=== PATIENT | male | born 1955 | race Caucasian/White ===

== ENCOUNTER 2018-09-24 11:44 | Outpatient (CLI) | payer MEDICAID ==
[~2018-09-24 11:44] MED LIST: DOCU100C40 PO; DONE-46 PO; DOXE25CA3 PO; FAMO20TA10 PO; LACT1CAP65 PO
== END 2018-09-24 23:59 | disposition home or self-care (01) ==
LOC: 64 CT 11:44
PROVIDERS: ATTEND Internal Medicine
DX: K57.30 Diverticulosis of large intestine without perforation or abscess without bleeding (principal); K44.9 Diaphragmatic hernia without obstruction or gangrene; K40.90 Unilateral inguinal hernia, without obstruction or gangrene, not specified as recurrent; J43.9 Emphysema, unspecified; K61.1 Rectal abscess
CPT/HCPCS: 74176

== ENCOUNTER 2023-08-20 13:44 | Inpatient (IN) | payer MEDICARE, MEDICAID ==
[~2023-08-20] VITALS: Ht 180.3 cm; Wt 45.7 kg
[2023-08-20 21:14] LABS: BASOPHILS % (AUTO) 0.3 % (0-1); EOSINOPHILS # (AUTO) 0.1 X10'3 (0-0.9); EOSINOPHILS % (AUTO) 0.4 % (0-6); HEMATOCRIT 34.5 % (42.0-52.0); HEMOGLOBIN 11.1 g/dl (14.0-17.9); LYMPHOCYTES # (AUTO) 1.1 X10'3 (1.1-4.8); LYMPHOCYTES % (AUTO) 5.8 % (21-51); MEAN CORPUSCULAR HEMOGLOBIN 30.6 PG (27.0-31.0); MEAN CORPUSCULAR HGB CONC 32.3 g/dL (33.0-36.5); MEAN CORPUSCULAR VOLUME 94.7 FL (78-98); MEAN PLATELET VOLUME 6.5 FL (7.4-10.4); MONOCYTES # (AUTO) 1.2 X10'3 (0-0.9); MONOCYTES % (AUTO) 6.5 % (2-12); NEUTROPHILS # (AUTO) 16.2 X10'3 (1.8-7.7); PLATELET COUNT 331 X10'3 (140-440); RED BLOOD COUNT 3.64 X10'6 (4.70-6.10); RED CELL DISTRIBUTION WIDTH 16.6 % (11.5-14.5); WHITE BLOOD COUNT 18.6 X10'3 (4.5-11.0)
[2023-08-20 21:24] LABS: APTT 25 SECONDS (22-32); PROTHROMBIN TIME 11.2 SECONDS (9.0-12.0)
[2023-08-20 21:26] LABS: ALANINE AMINOTRANSFERASE 19 U/L (12-78); ALBUMIN 3.1 G/DL (3.4-5.0); ALBUMIN/GLOBULIN RATIO 0.7 (1.1-1.5); ALKALINE PHOSPHATASE 57 IU/L (46-116); ANION GAP 10 (8-16); ASPARTATE AMINO TRANSFERASE 19 U/L (10-37); BILIRUBIN,TOTAL 0.5 MG/DL (0.1-1.0); BLOOD UREA NITROGEN 24 MG/DL (7-18); BUN/CREATININE RATIO 24.5 (10.0-20.0); C-REACTIVE PROTEIN 2.33 MG/DL (0.0-0.5); CALCIUM 8.5 MG/DL (8.5-10.1); CHLORIDE 100 MMOL/L (99-107); CREATININE 0.98 MG/DL (0.60-1.10); GLUCOSE 114 MG/DL (70-104); POTASSIUM 3.5 MMOL/L (3.5-5.1); SODIUM 138 MMOL/L (135-145); TOTAL CARBON DIOXIDE 28.5 MMOL/L (24-32); TOTAL PROTEIN 7.3 G/DL (6.4-8.2); eCRCL 46 ML/MIN; eGFR 76 ML/MIN
[2023-08-20] MEDS: normal saline 1000ml 1,000 ML IV ONE (22:57)
[2023-08-21] MEDS: CefTRIAXone/D5W-Rocephin 1gm 50 ML IV ONE (00:03)
[2023-08-21] MEDS ORDERED: potassium Cl 20 mEq SR tablet PO PRN (00:50)
[2023-08-21] MEDS ORDERED: potassium Cl 40MEQ/1/2NS 520ml 520 ML IV PRN (00:50)
[2023-08-21] MEDS ORDERED: magnesium 4gm in 100ml NS 100 ML IV PRN (00:50)
[2023-08-21] MEDS ORDERED: magnesium hydroxide 30ml (MOM) UD suspension PO PRN (00:50)
[2023-08-21] MEDS ORDERED: magnesium 2GM in 50ml NS 50 ML IV PRN (00:50)
[2023-08-21] MEDS: vancomycin/NS 1 GM ADD-VANTAGE 250 ML IV ONE (01:06)
[2023-08-21] MEDS: metroNIDAZOLE 500mg tablet PO SCH (08:00)
[2023-08-21] MEDS: docusate sod 100mg capsule PO SCH (08:00)
[2023-08-21] MEDS: K and/or MAG REPLACEMENT MC SCH (08:00)
[2023-08-21 08:10] VITALS: BP 105/60; PULSE 83; RESP 14; TEMP 98.6; O2SAT 97
[2023-08-21 08:22] LABS: MAGNESIUM 1.5 MG/DL (1.5-2.4)
[2023-08-21] MEDS: heparin, porcine 5000 units/ml vial SQ SCH (08:40)
[2023-08-21] MEDS: metroNIDAZOLE-Flagyl 500mg/NS 100 ML IV SCH (09:38)
[2023-08-21 10:00] VITALS: BP 109/61; PULSE 68; RESP 14; RESP 16; TEMP 98.1; O2SAT 97; O2SAT 98
[2023-08-21 11:11] LABS: BASOPHILS # (AUTO) 0.1 X10'3 (0-0.2); BASOPHILS % (AUTO) 0.4 % (0-1); EOSINOPHILS # (AUTO) 0.1 X10'3 (0-0.9); EOSINOPHILS % (AUTO) 0.6 % (0-6); HEMOGLOBIN 10.3 g/dl (14.0-17.9); LYMPHOCYTES # (AUTO) 0.8 X10'3 (1.1-4.8); LYMPHOCYTES % (AUTO) 4.8 % (21-51); MEAN CORPUSCULAR HEMOGLOBIN 30.4 PG (27.0-31.0); MEAN CORPUSCULAR HGB CONC 32.3 g/dL (33.0-36.5); MEAN CORPUSCULAR VOLUME 94.1 FL (78-98); MONOCYTES # (AUTO) 1.1 X10'3 (0-0.9); MONOCYTES % (AUTO) 6.8 % (2-12); NEUTROPHILS # (AUTO) 14.1 X10'3 (1.8-7.7); NEUTROPHILS % (AUTO) 87.4 % (42-75); PLATELET COUNT 253 X10'3 (140-440); RED CELL DISTRIBUTION WIDTH 16.6 % (11.5-14.5); WHITE BLOOD COUNT 16.1 X10'3 (4.5-11.0)
[2023-08-21 11:16] LABS: ALANINE AMINOTRANSFERASE 16 U/L (12-78); ALBUMIN 2.5 G/DL (3.4-5.0); ALBUMIN/GLOBULIN RATIO 0.7 (1.1-1.5); ALKALINE PHOSPHATASE 47 IU/L (46-116); ANION GAP 7 (8-16); ASPARTATE AMINO TRANSFERASE 16 U/L (10-37); BILIRUBIN,TOTAL 0.3 MG/DL (0.1-1.0); BLOOD UREA NITROGEN 17 MG/DL (7-18); BUN/CREATININE RATIO 20.2 (10.0-20.0); CALCIUM 7.6 MG/DL (8.5-10.1); CHLORIDE 104 MMOL/L (99-107); CREATININE 0.84 MG/DL (0.60-1.10); GLUCOSE 97 MG/DL (70-104); POTASSIUM 3.2 MMOL/L (3.5-5.1); SODIUM 135 MMOL/L (135-145); TOTAL CARBON DIOXIDE 23.7 MMOL/L (24-32); TOTAL PROTEIN 6.1 G/DL (6.4-8.2); eCRCL 54 ML/MIN; eGFR > 90 ML/MIN
[2023-08-21] MEDS: potassium Cl 20 mEq SR tablet PO PRN (12:44)
[2023-08-21] MEDS: ondansetron/PF 4mg/2ml inj IV PRN (12:44)
[2023-08-21 14:18] LABS: % IRON SATURATION 9 % (11-46); IRON 18 UG/DL (53-167); TOTAL IRON BINDING CAPACITY 204 UG/DL (259-388)
[2023-08-21] MEDS: heparin 10,000 units/1 ML INJ IV ONE (17:47)
[2023-08-21] MEDS: heparin 25,000 UNIT/250ml bag 250 ML IV PRN (17:54)
[2023-08-21 17:57] LABS: CHOL/HDL RATIO 2.3 (0.00-4.99); CHOLESTEROL 108 MG/DL (0-200); HDL CHOLESTEROL 46 MG/DL (35-60); LDL CHOLESTEROL 49 MG/DL (50-100); TRIGLYCERIDES 33 MG/DL (20-135)
[2023-08-21 18:00] VITALS: PULSE 79; RESP 16; TEMP 97.6; O2SAT 96
[2023-08-21] MEDS: MESSAGE TO NURSING IV ONE (18:28)
[2023-08-21 18:38] LABS: INR 1.1 INR; PROTHROMBIN TIME 12.1 SECONDS (9.0-12.0)
[2023-08-21] MEDS: atorvastatin 20mg tablet PO SCH (18:40)
[2023-08-21 18:54] LABS: APTT 89 SECONDS (22-32)
[2023-08-21 19:05] LABS: BASOPHILS # (AUTO) 0.1 X10'3 (0-0.2); BASOPHILS % (AUTO) 0.7 % (0-1); EOSINOPHILS # (AUTO) 0.2 X10'3 (0-0.9); HEMATOCRIT 33.2 % (42.0-52.0); HEMOGLOBIN 11.1 g/dl (14.0-17.9); LYMPHOCYTES % (AUTO) 6.5 % (21-51); MEAN CORPUSCULAR HEMOGLOBIN 31.3 PG (27.0-31.0); MEAN CORPUSCULAR HGB CONC 33.4 g/dL (33.0-36.5); MEAN CORPUSCULAR VOLUME 93.8 FL (78-98); MEAN PLATELET VOLUME 6.6 FL (7.4-10.4); MONOCYTES % (AUTO) 6.5 % (2-12); NEUTROPHILS # (AUTO) 13.4 X10'3 (1.8-7.7); NEUTROPHILS % (AUTO) 85.3 % (42-75); PLATELET COUNT 266 X10'3 (140-440); RED BLOOD COUNT 3.53 X10'6 (4.70-6.10); RED CELL DISTRIBUTION WIDTH 16.5 % (11.5-14.5); WHITE BLOOD COUNT 15.7 X10'3 (4.5-11.0)
[2023-08-21 20:00] VITALS: RESP 16; O2SAT 96
[2023-08-21] MEDS: CefTRIAXone 2gm/D5W 50ml BAG 50 ML IV SCH (21:48)
[2023-08-21] MEDS ORDERED: CefTRIAXone/D5W-Rocephin 1gm 50 ML IV SCH (22:00)
[2023-08-21 23:00] VITALS: BP 100/61; PULSE 55; RESP 16; TEMP 99.1; O2SAT 99
[2023-08-22] MEDS: vancomycin/NS 1 GM ADD-VANTAGE 250 ML IV SCH (00:06)
[2023-08-22] MEDS: heparin 10,000 units/1 ML INJ IV PRN (01:09)
[2023-08-22] MEDS: MESSAGE TO NURSING IV ONE ×5 (01:18→21:48)
[2023-08-22 06:30] VITALS: BP 107/51; PULSE 96; RESP 16; TEMP 97.9; O2SAT 98
[2023-08-22] MEDS: MULTIVIT-MIN/FERROUS GLUCONATE 9 MG/15 ML LIQUID PO SCH (07:50)
[2023-08-22 07:58] LABS: BASOPHILS # (AUTO) 0.1 X10'3 (0-0.2); BASOPHILS % (AUTO) 0.7 % (0-1); EOSINOPHILS # (AUTO) 0.2 X10'3 (0-0.9); EOSINOPHILS % (AUTO) 1.6 % (0-6); HEMATOCRIT 29.8 % (42.0-52.0); HEMOGLOBIN 9.8 g/dl (14.0-17.9); LYMPHOCYTES # (AUTO) 0.8 X10'3 (1.1-4.8); LYMPHOCYTES % (AUTO) 7.2 % (21-51); MEAN CORPUSCULAR HEMOGLOBIN 31.1 PG (27.0-31.0); MEAN CORPUSCULAR VOLUME 94.4 FL (78-98); MEAN PLATELET VOLUME 6.6 FL (7.4-10.4); MONOCYTES # (AUTO) 0.9 X10'3 (0-0.9); MONOCYTES % (AUTO) 7.9 % (2-12); NEUTROPHILS # (AUTO) 9.5 X10'3 (1.8-7.7); NEUTROPHILS % (AUTO) 82.6 % (42-75); PLATELET COUNT 258 X10'3 (140-440); RED BLOOD COUNT 3.16 X10'6 (4.70-6.10); RED CELL DISTRIBUTION WIDTH 16.3 % (11.5-14.5); WHITE BLOOD COUNT 11.5 X10'3 (4.5-11.0)
[2023-08-22 08:00] VITALS: RESP 20; O2SAT 99
[2023-08-22 08:29] LABS: ALANINE AMINOTRANSFERASE 18 U/L (12-78); ALBUMIN 2.2 G/DL (3.4-5.0); ALBUMIN/GLOBULIN RATIO 0.6 (1.1-1.5); ALKALINE PHOSPHATASE 40 IU/L (46-116); ANION GAP 7 (8-16); ASPARTATE AMINO TRANSFERASE 11 U/L (10-37); BILIRUBIN,TOTAL 0.4 MG/DL (0.1-1.0); BLOOD UREA NITROGEN 8 MG/DL (7-18); BUN/CREATININE RATIO 11.8 (10.0-20.0); CALCIUM 7.4 MG/DL (8.5-10.1); CHLORIDE 106 MMOL/L (99-107); CREATININE 0.68 MG/DL (0.60-1.10); GLUCOSE 89 MG/DL (70-104); MAGNESIUM 1.4 MG/DL (1.5-2.4); POTASSIUM 3.5 MMOL/L (3.5-5.1); SODIUM 139 MMOL/L (135-145); TOTAL CARBON DIOXIDE 25.9 MMOL/L (24-32); TOTAL PROTEIN 5.8 G/DL (6.4-8.2); eCRCL 67 ML/MIN; eGFR > 90 ML/MIN
[2023-08-22 10:30] VITALS: BP 100/50; PULSE 71; RESP 20; TEMP 97.6; O2SAT 99
[2023-08-22] MEDS ORDERED: iohexol 350MG/ML 100ml bottle IV ONE (11:05)
[2023-08-22] MEDS ORDERED: iohexol 350 MG/ML 50ML vial IV ONE (11:05)
[2023-08-22] MEDS: normal saline 1000ml 1,000 ML IV SCH (12:20)
[2023-08-22] MEDS: magnesium Cl slow-release 64mg tablet PO PRN (14:24)
[2023-08-22] MEDS: acetaminophen 325mg tablet PO PRN (14:25)
[2023-08-22] MEDS ORDERED: aminophylline 250mg/10ml inj. IV PRN (15:00)
[2023-08-22] MEDS ORDERED: nitroGLYCERIN 0.4mg SUBLingual tab SL PRN (15:00)
[2023-08-22] MEDS ORDERED: metoprolol tartrate 1mg/ml inj IV PRN (15:00)
[2023-08-22] MEDS ORDERED: MEGE400O7 PO (16:32)
[2023-08-22] MEDS ORDERED: MULT-1085 PO (16:32)
[2023-08-22] MEDS ORDERED: FLUT1BLS4 INH (16:32)
[2023-08-22] MEDS: pantoprazole 40 MG vial IV ONE (16:48)
[2023-08-22] MEDS: pneumococcal 23-VAL P-sac vacc 25 mcg/0.5ml vial IMVAC ONE (16:50)
[2023-08-22] MEDS: lactose-reduced food (Ensure Enlive) - 237ml bottle PO SCH (18:00)
[2023-08-22 22:28] VITALS: BP 111/54; PULSE 79; RESP 17; TEMP 98.1; O2SAT 97
[2023-08-23] VITALS (12 sets, daily range): BP systolic 103–150; BP diastolic 52–74; PULSE 66–114; RESP 14–18; TEMP 98–99.2; O2SAT 96–100
[2023-08-23 03:44] LABS: BASOPHILS # (AUTO) 0.1 X10'3 (0-0.2); BASOPHILS % (AUTO) 0.8 % (0-1); EOSINOPHILS # (AUTO) 0.2 X10'3 (0-0.9); EOSINOPHILS % (AUTO) 1.4 % (0-6); HEMATOCRIT 29.7 % (42.0-52.0); HEMOGLOBIN 9.8 g/dl (14.0-17.9); LYMPHOCYTES # (AUTO) 0.9 X10'3 (1.1-4.8); LYMPHOCYTES % (AUTO) 8.5 % (21-51); MEAN CORPUSCULAR HEMOGLOBIN 30.6 PG (27.0-31.0); MEAN CORPUSCULAR HGB CONC 32.9 g/dL (33.0-36.5); MEAN CORPUSCULAR VOLUME 93.1 FL (78-98); MEAN PLATELET VOLUME 6.4 FL (7.4-10.4); MONOCYTES # (AUTO) 0.8 X10'3 (0-0.9); MONOCYTES % (AUTO) 7.3 % (2-12); NEUTROPHILS # (AUTO) 9.1 X10'3 (1.8-7.7); PLATELET COUNT 252 X10'3 (140-440); RED BLOOD COUNT 3.19 X10'6 (4.70-6.10); RED CELL DISTRIBUTION WIDTH 16.7 % (11.5-14.5); WHITE BLOOD COUNT 11.2 X10'3 (4.5-11.0)
[2023-08-23 03:55] LABS: ALANINE AMINOTRANSFERASE 18 U/L (12-78); ALBUMIN 2.2 G/DL (3.4-5.0); ALBUMIN/GLOBULIN RATIO 0.6 (1.1-1.5); ALKALINE PHOSPHATASE 65 IU/L (46-116); ANION GAP 6 (8-16); ASPARTATE AMINO TRANSFERASE 15 U/L (10-37); BILIRUBIN,TOTAL 0.3 MG/DL (0.1-1.0); BLOOD UREA NITROGEN 11 MG/DL (7-18); BUN/CREATININE RATIO 16.9 (10.0-20.0); CALCIUM 7.5 MG/DL (8.5-10.1); CHLORIDE 107 MMOL/L (99-107); CREATININE 0.65 MG/DL (0.60-1.10); GLUCOSE 83 MG/DL (70-104); MAGNESIUM 1.6 MG/DL (1.5-2.4); POTASSIUM 3.5 MMOL/L (3.5-5.1); SODIUM 138 MMOL/L (135-145); TOTAL CARBON DIOXIDE 24.8 MMOL/L (24-32); TOTAL PROTEIN 5.7 G/DL (6.4-8.2); eCRCL 70 ML/MIN; eGFR > 90 ML/MIN
[2023-08-23] MEDS: MESSAGE TO NURSING IV ONE ×3 (04:04→17:50)
[2023-08-23] MEDS: regadenoson 0.4mg/5ml syringe IV PRN (11:47)
[2023-08-23] MEDS: morphine 2 MG/ML inj. syringe IV PRN (15:57)
[2023-08-23] MEDS: doxepin 25mg capsule PO SCH (20:42)
[2023-08-24] MEDS: VANCOMYCIN LEVEL IV ONE (00:56)
[2023-08-24] MEDS: MESSAGE TO NURSING IV ONE ×4 (01:08→23:05)
[2023-08-24] MEDS: donepezil 5mg tablet PO SCH (07:11)
[2023-08-24 07:36] LABS: BASOPHILS # (AUTO) 0.1 X10'3 (0-0.2); BASOPHILS % (AUTO) 0.8 % (0-1); EOSINOPHILS # (AUTO) 0.1 X10'3 (0-0.9); EOSINOPHILS % (AUTO) 0.7 % (0-6); HEMATOCRIT 31.7 % (42.0-52.0); HEMOGLOBIN 10.5 g/dl (14.0-17.9); LYMPHOCYTES # (AUTO) 0.7 X10'3 (1.1-4.8); LYMPHOCYTES % (AUTO) 6.1 % (21-51); MEAN CORPUSCULAR HEMOGLOBIN 30.7 PG (27.0-31.0); MEAN CORPUSCULAR HGB CONC 33.1 g/dL (33.0-36.5); MEAN CORPUSCULAR VOLUME 92.9 FL (78-98); MEAN PLATELET VOLUME 6.4 FL (7.4-10.4); MONOCYTES # (AUTO) 0.9 X10'3 (0-0.9); MONOCYTES % (AUTO) 7.3 % (2-12); NEUTROPHILS # (AUTO) 10.1 X10'3 (1.8-7.7); NEUTROPHILS % (AUTO) 85.1 % (42-75); PLATELET COUNT 263 X10'3 (140-440); RED BLOOD COUNT 3.41 X10'6 (4.70-6.10); RED CELL DISTRIBUTION WIDTH 16.2 % (11.5-14.5); WHITE BLOOD COUNT 11.9 X10'3 (4.5-11.0)
[2023-08-24 07:55] LABS: ALANINE AMINOTRANSFERASE 20 U/L (12-78); ALBUMIN 2.2 G/DL (3.4-5.0); ALBUMIN/GLOBULIN RATIO 0.6 (1.1-1.5); ALKALINE PHOSPHATASE 41 IU/L (46-116); ANION GAP 6 (8-16); ASPARTATE AMINO TRANSFERASE 18 U/L (10-37); BILIRUBIN,TOTAL 0.4 MG/DL (0.1-1.0); BLOOD UREA NITROGEN 6 MG/DL (7-18); BUN/CREATININE RATIO 8.8 (10.0-20.0); CALCIUM 7.5 MG/DL (8.5-10.1); CHLORIDE 105 MMOL/L (99-107); CREATININE 0.68 MG/DL (0.60-1.10); GLUCOSE 88 MG/DL (70-104); MAGNESIUM 1.2 MG/DL (1.5-2.4); SODIUM 138 MMOL/L (135-145); TOTAL PROTEIN 5.8 G/DL (6.4-8.2); eCRCL 67 ML/MIN; eGFR > 90 ML/MIN
[2023-08-24 07:56] LABS: POTASSIUM 2.8 MMOL/L (3.5-5.1)
[2023-08-24 08:00] VITALS: RESP 18; O2SAT 97
[2023-08-24 08:09] LABS: FERRITIN 172 NG/ML (26-388)
[2023-08-24 08:30] LABS: % IRON SATURATION 13 % (11-46); IRON 21 UG/DL (53-167); TOTAL IRON BINDING CAPACITY 163 UG/DL (259-388)
[2023-08-24] MEDS ORDERED: potassium Cl 20 mEq SR tablet PO PRN (08:50)
[2023-08-24] MEDS: potassium Cl 20 mEq SR tablet PO PRN (09:22)
[2023-08-24] MEDS: magnesium Cl slow-release 64mg tablet PO PRN (09:22)
[2023-08-24] MEDS: potassium Cl 40MEQ/1/2NS 520ml 520 ML IV PRN (11:07)
[2023-08-24 12:22] VITALS: BP 97/64; PULSE 96; RESP 18; TEMP 97.9; O2SAT 98
[2023-08-24 14:48] LABS: APTT 37 SECONDS (22-32)
[2023-08-24 18:00] VITALS: BP 98/54; PULSE 106; RESP 14; TEMP 98.6; O2SAT 100
[2023-08-24] MEDS: K and/or MAG REPLACEMENT MC SCH (20:00)
[2023-08-25] MEDS: VANCOMYCIN 1,500MG in normal saline IV soln 300 ML IV SCH (01:06)
[2023-08-25 01:13] VITALS: BP 90/54; PULSE 96; RESP 15; TEMP 98; O2SAT 97
[2023-08-25 06:08] VITALS: BP 100/52; PULSE 67; RESP 15; TEMP 97.9; O2SAT 98
[2023-08-25 06:38] LABS: CHLORIDE 107 MMOL/L (99-107); POTASSIUM 3.7 MMOL/L (3.5-5.1); SODIUM 140 MMOL/L (135-145)
[2023-08-25 06:42] LABS: BASOPHILS # (AUTO) 0.1 X10'3 (0-0.2); BASOPHILS % (AUTO) 0.9 % (0-1); EOSINOPHILS # (AUTO) 0.2 X10'3 (0-0.9); EOSINOPHILS % (AUTO) 1.7 % (0-6); HEMATOCRIT 29.6 % (42.0-52.0); HEMOGLOBIN 9.8 g/dl (14.0-17.9); LYMPHOCYTES % (AUTO) 9.6 % (21-51); MEAN CORPUSCULAR HEMOGLOBIN 31.3 PG (27.0-31.0); MEAN CORPUSCULAR HGB CONC 33.2 g/dL (33.0-36.5); MEAN CORPUSCULAR VOLUME 94.3 FL (78-98); MEAN PLATELET VOLUME 7.3 FL (7.4-10.4); MONOCYTES # (AUTO) 0.8 X10'3 (0-0.9); MONOCYTES % (AUTO) 7.5 % (2-12); NEUTROPHILS # (AUTO) 8.1 X10'3 (1.8-7.7); NEUTROPHILS % (AUTO) 80.3 % (42-75); PLATELET COUNT 260 X10'3 (140-440); RED BLOOD COUNT 3.14 X10'6 (4.70-6.10); RED CELL DISTRIBUTION WIDTH 16.1 % (11.5-14.5); WHITE BLOOD COUNT 10.1 X10'3 (4.5-11.0)
[2023-08-25] MEDS: MESSAGE TO NURSING IV ONE ×3 (06:45→19:00)
[2023-08-25 07:00] LABS: ALANINE AMINOTRANSFERASE 18 U/L (12-78); ALBUMIN/GLOBULIN RATIO 0.6 (1.1-1.5); ALKALINE PHOSPHATASE 37 IU/L (46-116); ANION GAP 10 (8-16); ASPARTATE AMINO TRANSFERASE 13 U/L (10-37); BILIRUBIN,TOTAL 0.3 MG/DL (0.1-1.0); BLOOD UREA NITROGEN 8 MG/DL (7-18); BUN/CREATININE RATIO 12.1 (10.0-20.0); CALCIUM 7.5 MG/DL (8.5-10.1); CREATININE 0.66 MG/DL (0.60-1.10); GLUCOSE 83 MG/DL (70-104); MAGNESIUM 1.3 MG/DL (1.5-2.4); TOTAL CARBON DIOXIDE 23.2 MMOL/L (24-32); TOTAL PROTEIN 5.6 G/DL (6.4-8.2); eCRCL 69 ML/MIN; eGFR > 90 ML/MIN
[2023-08-25 08:00] VITALS: RESP 18
[2023-08-25] MEDS: vancomycin/NS 1 GM ADD-VANTAGE 250 ML IV SCH (13:55)
[2023-08-25 14:00] VITALS: BP 104/56; PULSE 72; RESP 16; TEMP 98.2; O2SAT 98
[2023-08-25 18:00] VITALS: BP 99/57; PULSE 70; RESP 16; TEMP 98.8; O2SAT 98
[2023-08-25] MEDS: mag hydrox/Alum hydrox/simeth 30ml oral suspension PO PRN (19:21)
[2023-08-25 22:00] VITALS: BP 96/55; PULSE 96; RESP 16; TEMP 99; O2SAT 98
[2023-08-26] MEDS ORDERED: MESSAGE TO NURSING IV ONE (00:30)
[2023-08-26] MEDS: MESSAGE TO NURSING IV ONE ×3 (00:45→19:37)
[2023-08-26 06:00] VITALS: BP 98/59; PULSE 80; RESP 16; TEMP 98.1; O2SAT 100
[2023-08-26 06:39] LABS: BASOPHILS # (AUTO) 0.1 X10'3 (0-0.2); BASOPHILS % (AUTO) 0.8 % (0-1); EOSINOPHILS # (AUTO) 0.2 X10'3 (0-0.9); EOSINOPHILS % (AUTO) 2.4 % (0-6); HEMATOCRIT 28.5 % (42.0-52.0); HEMOGLOBIN 9.7 g/dl (14.0-17.9); LYMPHOCYTES % (AUTO) 11.6 % (21-51); MEAN CORPUSCULAR HEMOGLOBIN 31.8 PG (27.0-31.0); MEAN CORPUSCULAR VOLUME 93.7 FL (78-98); MEAN PLATELET VOLUME 6.5 FL (7.4-10.4); MONOCYTES # (AUTO) 0.7 X10'3 (0-0.9); MONOCYTES % (AUTO) 7.8 % (2-12); NEUTROPHILS # (AUTO) 6.7 X10'3 (1.8-7.7); NEUTROPHILS % (AUTO) 77.4 % (42-75); PLATELET COUNT 246 X10'3 (140-440); RED BLOOD COUNT 3.04 X10'6 (4.70-6.10); WHITE BLOOD COUNT 8.6 X10'3 (4.5-11.0)
[2023-08-26 06:43] LABS: ALANINE AMINOTRANSFERASE 22 U/L (12-78); ALBUMIN/GLOBULIN RATIO 0.5 (1.1-1.5); ALKALINE PHOSPHATASE 38 IU/L (46-116); ANION GAP 6 (8-16); ASPARTATE AMINO TRANSFERASE 14 U/L (10-37); BILIRUBIN,TOTAL 0.3 MG/DL (0.1-1.0); BLOOD UREA NITROGEN 13 MG/DL (7-18); CALCIUM 7.7 MG/DL (8.5-10.1); CHLORIDE 105 MMOL/L (99-107); CREATININE 0.65 MG/DL (0.60-1.10); GLUCOSE 92 MG/DL (70-104); POTASSIUM 3.5 MMOL/L (3.5-5.1); SODIUM 137 MMOL/L (135-145); TOTAL CARBON DIOXIDE 25.6 MMOL/L (24-32); TOTAL PROTEIN 5.7 G/DL (6.4-8.2); eCRCL 70 ML/MIN; eGFR > 90 ML/MIN
[2023-08-26] MEDS: magnesium oxide 400mg tablet PO SCH (07:54)
[2023-08-26 08:00] VITALS: RESP 18; O2SAT 100
[2023-08-26 11:00] VITALS: BP 103/59; PULSE 68; RESP 18; TEMP 97.9; O2SAT 94
[2023-08-26] MEDS: VANCOMYCIN LEVEL IV ONE (13:18)
[2023-08-26] MEDS: acetaminophen 325mg tablet PO PRN (17:24)
[2023-08-26 18:00] VITALS: BP 98/54; PULSE 96; RESP 18; TEMP 96.1; O2SAT 97
[2023-08-26] MEDS: magnesium 2GM in 50ml NS 50 ML IV PRN (18:40)
[2023-08-26 19:15] VITALS: RESP 16; O2SAT 97
[2023-08-26] MEDS: magnesium 4gm in 100ml NS 100 ML IV PRN (20:07)
[2023-08-26 22:00] VITALS: BP 105/79; PULSE 67; RESP 16; TEMP 98.6; O2SAT 97
[2023-08-27 01:49] LABS: BASOPHILS # (AUTO) 0.1 X10'3 (0-0.2); BASOPHILS % (AUTO) 1.2 % (0-1); EOSINOPHILS # (AUTO) 0.2 X10'3 (0-0.9); EOSINOPHILS % (AUTO) 2.4 % (0-6); HEMATOCRIT 26.6 % (42.0-52.0); HEMOGLOBIN 8.7 g/dl (14.0-17.9); LYMPHOCYTES # (AUTO) 1.2 X10'3 (1.1-4.8); LYMPHOCYTES % (AUTO) 13.6 % (21-51); MEAN CORPUSCULAR HEMOGLOBIN 30.7 PG (27.0-31.0); MEAN CORPUSCULAR HGB CONC 32.7 g/dL (33.0-36.5); MEAN CORPUSCULAR VOLUME 93.8 FL (78-98); MEAN PLATELET VOLUME 6.6 FL (7.4-10.4); MONOCYTES # (AUTO) 0.6 X10'3 (0-0.9); MONOCYTES % (AUTO) 7.4 % (2-12); NEUTROPHILS # (AUTO) 6.6 X10'3 (1.8-7.7); NEUTROPHILS % (AUTO) 75.4 % (42-75); PLATELET COUNT 255 X10'3 (140-440); RED BLOOD COUNT 2.84 X10'6 (4.70-6.10); RED CELL DISTRIBUTION WIDTH 16.3 % (11.5-14.5); WHITE BLOOD COUNT 8.8 X10'3 (4.5-11.0)
[2023-08-27] MEDS: MESSAGE TO NURSING IV ONE ×2 (02:28→11:16)
[2023-08-27 06:00] VITALS: BP 117/65; PULSE 80; RESP 16; TEMP 98; O2SAT 99
[2023-08-27 13:30] LABS: ALANINE AMINOTRANSFERASE 22 U/L (12-78); ALBUMIN 2.4 G/DL (3.4-5.0); ALBUMIN/GLOBULIN RATIO 0.6 (1.1-1.5); ALKALINE PHOSPHATASE 41 IU/L (46-116); ANION GAP 8 (8-16); ASPARTATE AMINO TRANSFERASE 18 U/L (10-37); BILIRUBIN,TOTAL 0.2 MG/DL (0.1-1.0); BLOOD UREA NITROGEN 12 MG/DL (7-18); CALCIUM 7.8 MG/DL (8.5-10.1); CHLORIDE 106 MMOL/L (99-107); GLUCOSE 96 MG/DL (70-104); POTASSIUM 3.5 MMOL/L (3.5-5.1); SODIUM 142 MMOL/L (135-145); TOTAL CARBON DIOXIDE 27.8 MMOL/L (24-32); TOTAL PROTEIN 6.1 G/DL (6.4-8.2); eCRCL 76 ML/MIN; eGFR > 90 ML/MIN
[2023-08-27 18:00] VITALS: BP 104/55; PULSE 83; RESP 16; TEMP 97.9; O2SAT 100
[2023-08-27 20:00] VITALS: RESP 16; O2SAT 97
[2023-08-27 22:00] VITALS: BP 105/57; PULSE 75; RESP 16; TEMP 97.8; O2SAT 93
[2023-08-27] MEDS: diatr meglu/diatrizoate 30ml oral sol.-(3 dose) bottle PO SCH (22:01)
[2023-08-27] MEDS: VANCOMYCIN 750MG IV in NS 250 ML IV SCH (22:06)
[2023-08-28 01:10] LABS: BASOPHILS # (AUTO) 0.1 X10'3 (0-0.2); BASOPHILS % (AUTO) 0.8 % (0-1); EOSINOPHILS # (AUTO) 0.2 X10'3 (0-0.9); EOSINOPHILS % (AUTO) 1.7 % (0-6); HEMATOCRIT 24.5 % (42.0-52.0); HEMOGLOBIN 8.4 g/dl (14.0-17.9); LYMPHOCYTES # (AUTO) 1.1 X10'3 (1.1-4.8); LYMPHOCYTES % (AUTO) 12.2 % (21-51); MEAN CORPUSCULAR HGB CONC 34.1 g/dL (33.0-36.5); MEAN CORPUSCULAR VOLUME 93.6 FL (78-98); MEAN PLATELET VOLUME 6.3 FL (7.4-10.4); MONOCYTES # (AUTO) 0.7 X10'3 (0-0.9); NEUTROPHILS % (AUTO) 77.3 % (42-75); PLATELET COUNT 244 X10'3 (140-440); RED BLOOD COUNT 2.62 X10'6 (4.70-6.10); RED CELL DISTRIBUTION WIDTH 16.2 % (11.5-14.5)
[2023-08-28 01:19] LABS: ALANINE AMINOTRANSFERASE 25 U/L (12-78); ALBUMIN 2.3 G/DL (3.4-5.0); ALBUMIN/GLOBULIN RATIO 0.7 (1.1-1.5); ALKALINE PHOSPHATASE 39 IU/L (46-116); ANION GAP 3 (8-16); ASPARTATE AMINO TRANSFERASE 33 U/L (10-37); BILIRUBIN,TOTAL 0.2 MG/DL (0.1-1.0); BLOOD UREA NITROGEN 16 MG/DL (7-18); BUN/CREATININE RATIO 27.1 (10.0-20.0); CALCIUM 7.9 MG/DL (8.5-10.1); CHLORIDE 105 MMOL/L (99-107); CREATININE 0.59 MG/DL (0.60-1.10); GLUCOSE 76 MG/DL (70-104); POTASSIUM 3.7 MMOL/L (3.5-5.1); SODIUM 137 MMOL/L (135-145); TOTAL CARBON DIOXIDE 28.6 MMOL/L (24-32); TOTAL PROTEIN 5.8 G/DL (6.4-8.2); eCRCL 77 ML/MIN; eGFR > 90 ML/MIN
[2023-08-28] MEDS: MESSAGE TO NURSING IV ONE ×5 (02:04→23:53)
[2023-08-28 06:00] VITALS: BP 119/68; PULSE 79; RESP 15; TEMP 97.5; O2SAT 97
[2023-08-28] MEDS: pantoprazole 40mg Tablet.DR PO SCH (07:47)
[2023-08-28 10:00] VITALS: BP 103/59; PULSE 89; RESP 17; TEMP 98.5; O2SAT 100
[2023-08-28 14:29] LABS: APTT 60 SECONDS (22-32)
[2023-08-28 18:00] VITALS: BP 114/63; PULSE 67; RESP 16; TEMP 97.9; O2SAT 93
[2023-08-28] MEDS: VANCOMYCIN LEVEL IV ONE (20:26)
[2023-08-28 22:00] VITALS: BP 109/62; PULSE 53; RESP 18; TEMP 99.3; O2SAT 99
[2023-08-29] VITALS (9 sets, daily range): BP systolic 97–132; BP diastolic 42–70; PULSE 52–121; RESP 14–21; TEMP 97.3–98.3; O2SAT 96–100
[2023-08-29 05:41] LABS: BASOPHILS # (AUTO) 0.1 X10'3 (0-0.2); BASOPHILS % (AUTO) 0.9 % (0-1); EOSINOPHILS # (AUTO) 0.2 X10'3 (0-0.9); EOSINOPHILS % (AUTO) 1.8 % (0-6); HEMATOCRIT 26.1 % (42.0-52.0); HEMOGLOBIN 8.7 g/dl (14.0-17.9); LYMPHOCYTES # (AUTO) 1.1 X10'3 (1.1-4.8); LYMPHOCYTES % (AUTO) 12.3 % (21-51); MEAN CORPUSCULAR HEMOGLOBIN 31.4 PG (27.0-31.0); MEAN CORPUSCULAR HGB CONC 33.3 g/dL (33.0-36.5); MEAN CORPUSCULAR VOLUME 94.4 FL (78-98); MEAN PLATELET VOLUME 6.8 FL (7.4-10.4); MONOCYTES # (AUTO) 0.8 X10'3 (0-0.9); MONOCYTES % (AUTO) 8.6 % (2-12); NEUTROPHILS # (AUTO) 6.9 X10'3 (1.8-7.7); NEUTROPHILS % (AUTO) 76.4 % (42-75); PLATELET COUNT 267 X10'3 (140-440); RED BLOOD COUNT 2.77 X10'6 (4.70-6.10); WHITE BLOOD COUNT 9.1 X10'3 (4.5-11.0)
[2023-08-29 05:45] LABS: ALANINE AMINOTRANSFERASE 39 U/L (12-78); ALBUMIN 2.3 G/DL (3.4-5.0); ALBUMIN/GLOBULIN RATIO 0.6 (1.1-1.5); ALKALINE PHOSPHATASE 44 IU/L (46-116); ANION GAP 8 (8-16); ASPARTATE AMINO TRANSFERASE 38 U/L (10-37); BILIRUBIN,TOTAL 0.2 MG/DL (0.1-1.0); BLOOD UREA NITROGEN 12 MG/DL (7-18); BUN/CREATININE RATIO 19.4 (10.0-20.0); CALCIUM 8.3 MG/DL (8.5-10.1); CHLORIDE 104 MMOL/L (99-107); CREATININE 0.62 MG/DL (0.60-1.10); GLUCOSE 92 MG/DL (70-104); POTASSIUM 4.1 MMOL/L (3.5-5.1); SODIUM 139 MMOL/L (135-145); TOTAL CARBON DIOXIDE 27.1 MMOL/L (24-32); eCRCL 74 ML/MIN; eGFR > 90 ML/MIN
[2023-08-29] MEDS: MESSAGE TO NURSING IV ONE ×3 (05:59→19:51)
[2023-08-29] MEDS: pantoprazole 40mg Tablet.DR PO SCH (07:30)
[2023-08-29] MEDS ORDERED: LIDOcaine 2% Viscous 15ml cup ONE (09:53)
[2023-08-29] MEDS ORDERED: fentaNYL/PF 50MCG/1 ML 2ML syringe ONE (10:10)
[2023-08-29] MEDS ORDERED: MIDAZolam 1 MG/ML 5ML VIAL ONE (10:11)
[2023-08-30 06:50] LABS: BASOPHILS # (AUTO) 0.1 X10'3 (0-0.2); BASOPHILS % (AUTO) 0.7 % (0-1); EOSINOPHILS # (AUTO) 0.1 X10'3 (0-0.9); EOSINOPHILS % (AUTO) 1.4 % (0-6); HEMATOCRIT 25.6 % (42.0-52.0); HEMOGLOBIN 8.5 g/dl (14.0-17.9); LYMPHOCYTES % (AUTO) 9.9 % (21-51); MEAN CORPUSCULAR HEMOGLOBIN 31.7 PG (27.0-31.0); MEAN CORPUSCULAR HGB CONC 33.4 g/dL (33.0-36.5); MEAN CORPUSCULAR VOLUME 94.9 FL (78-98); MEAN PLATELET VOLUME 6.6 FL (7.4-10.4); MONOCYTES # (AUTO) 0.8 X10'3 (0-0.9); MONOCYTES % (AUTO) 7.1 % (2-12); NEUTROPHILS # (AUTO) 8.5 X10'3 (1.8-7.7); NEUTROPHILS % (AUTO) 80.9 % (42-75); PLATELET COUNT 264 X10'3 (140-440); RED CELL DISTRIBUTION WIDTH 16.3 % (11.5-14.5); WHITE BLOOD COUNT 10.5 X10'3 (4.5-11.0)
[2023-08-30 07:00] VITALS: BP 93/54; PULSE 77; RESP 16; TEMP 97.7; O2SAT 97
[2023-08-30 07:12] LABS: ALANINE AMINOTRANSFERASE 39 U/L (12-78); ALBUMIN 2.4 G/DL (3.4-5.0); ALBUMIN/GLOBULIN RATIO 0.6 (1.1-1.5); ALKALINE PHOSPHATASE 52 IU/L (46-116); ANION GAP 7 (8-16); ASPARTATE AMINO TRANSFERASE 25 U/L (10-37); BILIRUBIN,TOTAL 0.3 MG/DL (0.1-1.0); BLOOD UREA NITROGEN 17 MG/DL (7-18); BUN/CREATININE RATIO 21.3 (10.0-20.0); CALCIUM 8.3 MG/DL (8.5-10.1); CHLORIDE 102 MMOL/L (99-107); GLUCOSE 127 MG/DL (70-104); SODIUM 137 MMOL/L (135-145); TOTAL CARBON DIOXIDE 28.5 MMOL/L (24-32); TOTAL PROTEIN 6.1 G/DL (6.4-8.2); eCRCL 57 ML/MIN; eGFR > 90 ML/MIN
[2023-08-30] MEDS: MESSAGE TO NURSING IV ONE ×2 (07:31→07:40)
[2023-08-30] MEDS: folic acid 1mg tablet PO SCH (07:55)
[2023-08-30] MEDS: morphine 2 MG/ML inj. syringe IV PRN (10:34)
[2023-08-30 11:00] VITALS: BP 100/55; PULSE 65; RESP 14; TEMP 97.7; O2SAT 93
[2023-08-30 17:00] VITALS: BP 104/50; PULSE 103; RESP 14; TEMP 97.3; O2SAT 93
[2023-08-30] MEDS: HYDROcodone/acetaminophen 5mg/325mg tablet PO PRN (21:05)
[2023-08-30 22:00] VITALS: BP 95/57; PULSE 63; RESP 16; TEMP 98.5; O2SAT 97
[2023-08-31 06:00] VITALS: BP 114/50; PULSE 88; RESP 16; TEMP 98.4; O2SAT 95
[2023-08-31 06:30] LABS: BASOPHILS # (AUTO) 0.1 X10'3 (0-0.2); BASOPHILS % (AUTO) 0.8 % (0-1); EOSINOPHILS # (AUTO) 0.1 X10'3 (0-0.9); EOSINOPHILS % (AUTO) 1.7 % (0-6); HEMATOCRIT 22.5 % (42.0-52.0); HEMOGLOBIN 7.6 g/dl (14.0-17.9); LYMPHOCYTES # (AUTO) 0.8 X10'3 (1.1-4.8); LYMPHOCYTES % (AUTO) 9.1 % (21-51); MEAN CORPUSCULAR HEMOGLOBIN 32.3 PG (27.0-31.0); MEAN CORPUSCULAR HGB CONC 33.9 g/dL (33.0-36.5); MEAN CORPUSCULAR VOLUME 95.3 FL (78-98); MEAN PLATELET VOLUME 6.7 FL (7.4-10.4); MONOCYTES # (AUTO) 0.8 X10'3 (0-0.9); MONOCYTES % (AUTO) 9.4 % (2-12); NEUTROPHILS # (AUTO) 6.6 X10'3 (1.8-7.7); PLATELET COUNT 262 X10'3 (140-440); RED BLOOD COUNT 2.36 X10'6 (4.70-6.10); RED CELL DISTRIBUTION WIDTH 16.9 % (11.5-14.5); WHITE BLOOD COUNT 8.4 X10'3 (4.5-11.0)
[2023-08-31 06:43] LABS: ALANINE AMINOTRANSFERASE 40 U/L (12-78); ALBUMIN 2.5 G/DL (3.4-5.0); ALBUMIN/GLOBULIN RATIO 0.7 (1.1-1.5); ALKALINE PHOSPHATASE 42 IU/L (46-116); ANION GAP 6 (8-16); ASPARTATE AMINO TRANSFERASE 24 U/L (10-37); BILIRUBIN,TOTAL 0.2 MG/DL (0.1-1.0); BLOOD UREA NITROGEN 14 MG/DL (7-18); BUN/CREATININE RATIO 19.7 (10.0-20.0); CALCIUM 8.4 MG/DL (8.5-10.1); CHLORIDE 103 MMOL/L (99-107); CREATININE 0.71 MG/DL (0.60-1.10); GLUCOSE 88 MG/DL (70-104); POTASSIUM 3.9 MMOL/L (3.5-5.1); SODIUM 139 MMOL/L (135-145); TOTAL CARBON DIOXIDE 30.5 MMOL/L (24-32); TOTAL PROTEIN 6.1 G/DL (6.4-8.2); eCRCL 64 ML/MIN; eGFR > 90 ML/MIN
[2023-08-31] MEDS: clopidogrel 75mg tablet PO SCH (07:34)
[2023-08-31 08:00] VITALS: RESP 20; O2SAT 97
[2023-08-31 10:00] VITALS: BP 119/57; PULSE 105; RESP 20; TEMP 98; O2SAT 97
[2023-08-31 18:00] VITALS: BP 98/56; PULSE 89; RESP 20; TEMP 98; O2SAT 98
[2023-08-31 20:00] VITALS: RESP 18; O2SAT 97
[2023-08-31] MEDS: heparin, porcine 5000 units/ml vial SQ SCH (20:52)
[2023-08-31 22:00] VITALS: BP 102/55; PULSE 62; RESP 20; TEMP 97.2; O2SAT 95
[2023-09-01 06:00] VITALS: BP 113/57; PULSE 93; RESP 16; TEMP 97.6; O2SAT 96
[2023-09-01 07:32] LABS: BASOPHILS # (AUTO) 0.1 X10'3 (0-0.2); BASOPHILS % (AUTO) 0.7 % (0-1); EOSINOPHILS # (AUTO) 0.2 X10'3 (0-0.9); EOSINOPHILS % (AUTO) 2.2 % (0-6); HEMATOCRIT 24.7 % (42.0-52.0); HEMOGLOBIN 8.3 g/dl (14.0-17.9); LYMPHOCYTES # (AUTO) 0.9 X10'3 (1.1-4.8); LYMPHOCYTES % (AUTO) 8.1 % (21-51); MEAN CORPUSCULAR HEMOGLOBIN 32.1 PG (27.0-31.0); MEAN CORPUSCULAR HGB CONC 33.4 g/dL (33.0-36.5); MEAN CORPUSCULAR VOLUME 96.2 FL (78-98); MEAN PLATELET VOLUME 6.8 FL (7.4-10.4); MONOCYTES # (AUTO) 0.9 X10'3 (0-0.9); MONOCYTES % (AUTO) 8.6 % (2-12); NEUTROPHILS # (AUTO) 8.5 X10'3 (1.8-7.7); NEUTROPHILS % (AUTO) 80.4 % (42-75); PLATELET COUNT 301 X10'3 (140-440); RED BLOOD COUNT 2.57 X10'6 (4.70-6.10); RED CELL DISTRIBUTION WIDTH 16.7 % (11.5-14.5); WHITE BLOOD COUNT 10.5 X10'3 (4.5-11.0)
[2023-09-01 08:14] LABS: ALANINE AMINOTRANSFERASE 34 U/L (12-78); ALBUMIN 2.5 G/DL (3.4-5.0); ALBUMIN/GLOBULIN RATIO 0.7 (1.1-1.5); ALKALINE PHOSPHATASE 40 IU/L (46-116); ANION GAP 7 (8-16); ASPARTATE AMINO TRANSFERASE 26 U/L (10-37); BILIRUBIN,TOTAL 0.3 MG/DL (0.1-1.0); BLOOD UREA NITROGEN 12 MG/DL (7-18); BUN/CREATININE RATIO 15.8 (10.0-20.0); CALCIUM 8.4 MG/DL (8.5-10.1); CHLORIDE 103 MMOL/L (99-107); CREATININE 0.76 MG/DL (0.60-1.10); GLUCOSE 90 MG/DL (70-104); POTASSIUM 4.2 MMOL/L (3.5-5.1); SODIUM 139 MMOL/L (135-145); TOTAL PROTEIN 6.3 G/DL (6.4-8.2); eCRCL 60 ML/MIN; eGFR > 90 ML/MIN
[2023-09-01] MEDS: aspirin 81mg, enteric-coated 1 TAB TABLET.DR PO SCH (08:45)
[2023-09-01 10:00] VITALS: BP 88/49; PULSE 92; RESP 18; TEMP 98; O2SAT 97
[2023-09-01] MEDS ORDERED: ASPI-1071 PO (12:01)
[2023-09-01] MEDS ORDERED: PANT40TA54 PO (12:01)
[2023-09-01 18:00] VITALS: BP 99/63; PULSE 90; RESP 18; TEMP 97.5; O2SAT 98
[2023-09-01 20:00] VITALS: RESP 18; O2SAT 98
[2023-09-01 22:00] VITALS: BP 106/51; PULSE 96; RESP 15; TEMP 97.4; O2SAT 97
[2023-09-02 06:00] VITALS: BP 111/56; PULSE 72; RESP 16; TEMP 98.1; O2SAT 99
[2023-09-02 08:45] VITALS: RESP 18; O2SAT 96
[2023-09-02 11:00] VITALS: BP 100/59; PULSE 99; RESP 18; TEMP 98; O2SAT 96
[2023-09-02 18:00] VITALS: BP 107/56; PULSE 79; RESP 18; TEMP 97.7; O2SAT 95
[2023-09-02 22:00] VITALS: BP 108/50; PULSE 72; RESP 13; TEMP 97.4; O2SAT 96
[2023-09-03 06:00] VITALS: BP 111/66; PULSE 82; RESP 15; TEMP 97.6; O2SAT 100
[2023-09-03 10:00] VITALS: BP 110/69; PULSE 74; RESP 16; TEMP 97
[2023-09-03] MEDS ORDERED: VANCOMYCIN LEVEL IV ONE (12:30)
[2023-09-03 18:00] VITALS: BP 114/73; PULSE 73; RESP 14; TEMP 97.4; O2SAT 98
[2023-09-03 22:00] VITALS: BP 128/67; PULSE 87; RESP 16; TEMP 98.6; O2SAT 95
[2023-09-04 06:26] VITALS: BP 99/52; PULSE 93; RESP 14; TEMP 98.4; O2SAT 100
[2023-09-04 08:00] VITALS: RESP 14; O2SAT 100
[2023-09-04] MEDS ORDERED: CLOP75TA34 PO (09:45)
[2023-09-04] MEDS ORDERED: ATOR20TA66 PO (09:45)
== END 2023-09-04 10:45 | disposition home or self-care (01) | DRG 299 ==
LOC: ER 13:45 → ED HOLD 08-21 00:51 → EDBEDREQ 08-21 05:18 → ORTHO 4S 08-21 08:20
PROVIDERS: ADMIT Internal Medicine; ATTEND Family Medicine
PROC: B4201ZZ Computerized Tomography (CT Scan) of Abdominal Aorta using Low Osmolar Contrast (ICD-10-PCS; 2023-08-22)
PROC: B4241ZZ Computerized Tomography (CT Scan) of Superior Mesenteric Artery using Low Osmolar Contrast (ICD-10-PCS; 2023-08-22)
PROC: B4281ZZ Computerized Tomography (CT Scan) of Bilateral Renal Arteries using Low Osmolar Contrast (ICD-10-PCS; 2023-08-22)
PROC: B42C1ZZ Computerized Tomography (CT Scan) of Pelvic Arteries using Low Osmolar Contrast (ICD-10-PCS; 2023-08-22)
PROC: B42H1ZZ Computerized Tomography (CT Scan) of Bilateral Lower Extremity Arteries using Low Osmolar Contrast (ICD-10-PCS; 2023-08-22)
PROC: B4211ZZ Computerized Tomography (CT Scan) of Celiac Artery using Low Osmolar Contrast (ICD-10-PCS; 2023-08-22)
PROC: B42H1ZZ Computerized Tomography (CT Scan) of Bilateral Lower Extremity Arteries using Low Osmolar Contrast (ICD-10-PCS; 2023-08-22)
PROC: 4A02XM4 Measurement of Cardiac Total Activity, External Approach (ICD-10-PCS; 2023-08-23)
PROC: 3E033HZ Introduction of Radioactive Substance into Peripheral Vein, Percutaneous Approach (ICD-10-PCS; 2023-08-23)
PROC: 0DB58ZX Excision of Esophagus, Via Natural or Artificial Opening Endoscopic, Diagnostic (ICD-10-PCS; principal; 2023-08-29)
PROC: 02HV33Z Insertion of Infusion Device into Superior Vena Cava, Percutaneous Approach (ICD-10-PCS; 2023-08-30)
PROC: B548ZZA Ultrasonography of Superior Vena Cava, Guidance (ICD-10-PCS; 2023-08-30)
DX: E11.52 Type 2 diabetes mellitus with diabetic peripheral angiopathy with gangrene (principal); E43 Unspecified severe protein-calorie malnutrition; M86.8X7 Other osteomyelitis, ankle and foot; C15.9 Malignant neoplasm of esophagus, unspecified; Z68.1 Body mass index [BMI] 19.9 or less, adult; I50.20 Unspecified systolic (congestive) heart failure; L03.032 Cellulitis of left toe; I74.5 Embolism and thrombosis of iliac artery; E11.69 Type 2 diabetes mellitus with other specified complication; K22.2 Esophageal obstruction; J43.9 Emphysema, unspecified; F03.90 Unspecified dementia, unspecified severity, without behavioral disturbance, psychotic disturbance, mood disturbance, and anxiety; E87.6 Hypokalemia; D50.9 Iron deficiency anemia, unspecified; D72.829 Elevated white blood cell count, unspecified; I25.10 Atherosclerotic heart disease of native coronary artery without angina pectoris; Z88.0 Allergy status to penicillin; Z91.011 Allergy to milk products; Z93.3 Colostomy status; Z85.048 Personal history of other malignant neoplasm of rectum, rectosigmoid junction, and anus; Z87.891 Personal history of nicotine dependence; Z83.3 Family history of diabetes mellitus
CPT/HCPCS: 36415; 43239; 71250; 73700; 73718; 74176; 75635; 78452; 80053; 80061; 80202; 82607; 82728; 82948; 83036; 83540; 83550; 83605; 83735; 84145; 85025; 85610; 85651; 85730; 86140; 87040; 87081; 88305; 90732; 93017; 93306; 93922; 93975; 96365; 97116; 97161; 97530; 99152; 99285; A4371; A4421; A4620; A4649; A6212; A6213; A6258; A6449; A9500; C9113; G0378; J0696; J1644; J2250; J2270; J2405; J2785; J3010; J3370; J3475; J3480; J3490; J7030; J7040; J7050; J8597; Q9963; Q9967

== ENCOUNTER 2023-10-17 08:34 | Emergency (ER) | payer MEDICARE, MEDICAID ==
[~2023-10-17] VITALS: Ht 170.2 cm; Wt 54.5 kg
[~2023-10-17 08:34] MED LIST changes: +ASPI-1071 PO; +ATOR20TA66 PO; +CLOP75TA34 PO; -DOCU100C40 PO; -DONE-46 PO; -DOXE25CA3 PO; -FAMO20TA10 PO; +FLUT1BLS4 INH; -LACT1CAP65 PO; +MEGE400O7 PO; +MULT-1085 PO; +PANT40TA54 PO
[2023-10-17 09:43] LABS: BASOPHILS # (AUTO) 0.1 X10'3 (0-0.2); BASOPHILS % (AUTO) 0.4 % (0-1); EOSINOPHILS # (AUTO) 0.1 X10'3 (0-0.9); EOSINOPHILS % (AUTO) 0.4 % (0-6); HEMATOCRIT 37.2 % (42.0-52.0); LYMPHOCYTES # (AUTO) 0.8 X10'3 (1.1-4.8); LYMPHOCYTES % (AUTO) 5.7 % (21-51); MEAN CORPUSCULAR HEMOGLOBIN 29.2 PG (27.0-31.0); MEAN CORPUSCULAR HGB CONC 32.1 g/dL (33.0-36.5); MEAN CORPUSCULAR VOLUME 90.9 FL (78-98); MEAN PLATELET VOLUME 6.8 FL (7.4-10.4); MONOCYTES # (AUTO) 0.9 X10'3 (0-0.9); MONOCYTES % (AUTO) 6.8 % (2-12); NEUTROPHILS % (AUTO) 86.7 % (42-75); PLATELET COUNT 302 X10'3 (140-440); RED CELL DISTRIBUTION WIDTH 15.8 % (11.5-14.5); WHITE BLOOD COUNT 13.8 X10'3 (4.5-11.0)
[2023-10-17 10:12] LABS: ALANINE AMINOTRANSFERASE 28 U/L (12-78); ALBUMIN 2.6 G/DL (3.4-5.0); ALBUMIN/GLOBULIN RATIO 0.5 (1.1-1.5); ALKALINE PHOSPHATASE 57 IU/L (46-116); ANION GAP 10 (8-16); BILIRUBIN,TOTAL 0.5 MG/DL (0.1-1.0); BLOOD UREA NITROGEN 14 MG/DL (7-18); BUN/CREATININE RATIO 17.5 (10.0-20.0); CALCIUM 8.8 MG/DL (8.5-10.1); CHLORIDE 100 MMOL/L (99-107); GLUCOSE 107 MG/DL (70-104); SODIUM 137 MMOL/L (135-145); TOTAL CARBON DIOXIDE 26.7 MMOL/L (24-32); TOTAL PROTEIN 7.4 G/DL (6.4-8.2); eCRCL 68 ML/MIN; eGFR > 90 ML/MIN
[2023-10-17 10:14] LABS: ASPARTATE AMINO TRANSFERASE 37 U/L (10-37); POTASSIUM 3.7 MMOL/L (3.5-5.1)
[2023-10-17 11:56] VITALS: BP 97/55; PULSE 87; RESP 16; TEMP 97.8; O2SAT 97
== END 2023-10-17 11:59 | disposition home or self-care (01) ==
LOC: ER 08:35
DX: C15.9 Malignant neoplasm of esophagus, unspecified (principal); L89.312 Pressure ulcer of right buttock, stage 2; R64 Cachexia; F03.90 Unspecified dementia, unspecified severity, without behavioral disturbance, psychotic disturbance, mood disturbance, and anxiety; E11.9 Type 2 diabetes mellitus without complications; I48.91 Unspecified atrial fibrillation; D64.9 Anemia, unspecified; Z85.038 Personal history of other malignant neoplasm of large intestine; Z60.2 Problems related to living alone; Z88.0 Allergy status to penicillin; Z91.011 Allergy to milk products; Z79.82 Long term (current) use of aspirin; Z79.899 Other long term (current) drug therapy; Z79.52 Long term (current) use of systemic steroids
CPT/HCPCS: 36415; 80053; 85025; 99283; A6212